=== PATIENT | female | born 1970 ===

== ENCOUNTER 2023-01-23 06:00 | Day surgery (SDC) | payer OTHER | END 2023-01-23 11:45 | disposition home or self-care (01) | LOC: CIR.AMB 06:00 | PROVIDERS: ATTEND Surgery Surgery of the Hand | DX: M65.842 Other synovitis and tenosynovitis, left hand (principal); M65.4 Radial styloid tenosynovitis [de Quervain]; Z20.822 Contact with and (suspected) exposure to COVID-19; Z03.818 Encounter for observation for suspected exposure to other biological agents ruled out; Z20.828 Contact with and (suspected) exposure to other viral communicable diseases ==